=== PATIENT | male | born 1980 | race Two or more races ===

== ENCOUNTER 2019-02-27 12:59 | Emergency (ER) | payer OTHER ==
[~2019-02-27] VITALS: Ht 182.9 cm; Wt 79.5 kg
[2019-02-27] MEDS ORDERED: DEXAMETHASONE 4 MG TABLET PO ONE (13:45)
[2019-02-27] MEDS ORDERED: KETOROLAC TROMETHAMINE 60 MG/2 ML VIAL IM ONE (13:45)
[2019-02-27] MEDS ORDERED: KETOROLAC TROMETHAMINE 0.5% 5 ML OPHTHALMIC SOLUTION OS ONE (14:30)
[2019-02-27 15:19] LABS: BASOPHILS % (AUTO) 0.4 % (0.0-2.0); EOSINOPHILS % (AUTO) 0.7 % (1.0-6.0); HEMATOCRIT 41.4 % (41-53); HEMOGLOBIN 13.8 g/dL (13.5-17.5); LYMPHOCYTES # (AUTO) 1.4 K/uL (1.0-4.8); LYMPHOCYTES % (AUTO) 12.7 % (22.0-44.0); MEAN CORPUSCULAR HEMOGLOBIN 29.5 pg (26.0-34.0); MEAN CORPUSCULAR HGB CONC 33.2 G/dL (31.0-37.0); MEAN CORPUSCULAR VOLUME 89 fL (80-100); MONOCYTES % (AUTO) 9.3 % (2.0-9.0); NEUTROPHILS # (AUTO) 8.5 K/uL (1.8-7.7); NEUTROPHILS % (AUTO) 76.9 % (40.0-70.0); PLATELET COUNT (AUTO) 345 K/uL (150-450); RED BLOOD CELL COUNT(AUTO) 4.67 MIL/uL (4.50-5.90); RED CELL DISTRIBUTION WIDTH 13.1 % (11.5-14.5)
[2019-02-27 15:30] LABS: ANION GAP 7 mmol/L (8-16); CALCIUM, TOTAL 8.7 mg/dL (8.8-10.5); CARBON DIOXIDE 28 mmol/L (22-29); CHLORIDE 103 mmol/L (98-107); CREATININE 1.01 mg/dL (0.60-1.30); GLOMERULAR FILTR. RATE CALC > 60 mL/min (>60); GLUCOSE,RANDOM 112 mg/dL (70-110); POTASSIUM 3.7 mmol/L (3.5-5.1); SODIUM SERUM 138 mmol/L (136-145); UREA NITROGEN, BLOOD 13 mg/dL (7-18)
[2019-02-27 15:36] LABS: ALANINE AMINOTRANSFERASE 30 U/L (12-78); ALBUMIN 2.8 g/dL (3.4-5.0); ALKALINE PHOSPHATASE 147 U/L (46-116); ASPARTATE AMINOTRANSFERASE 22 U/L (15-37); BILIRUBIN,TOTAL 0.4 mg/dL (0.1-1.0); C-REACTIVE PROTEIN QUANT 17.27 mg/dL (0.00-0.30); TOTAL PROTEIN, SERUM 6.8 g/dL (6.4-8.2)
[2019-02-27 16:00] VITALS: BP 120/76
[2019-02-27 16:29] LABS: ERYTHROCYTE SEDIMENTATION RATE 40 MM/HR (0-15)
== END 2019-02-27 16:45 | disposition home or self-care (01) ==
LOC: EMS 13:02
DX: H20.00 Unspecified acute and subacute iridocyclitis (principal); M13.862 Other specified arthritis, left knee; F12.90 Cannabis use, unspecified, uncomplicated
CPT/HCPCS: 36415; 80053; 85025; 85651; 86140; 96372; 99283; J1885; J8540

== ENCOUNTER 2019-03-03 01:55 | Emergency (ER) | payer OTHER ==
[~2019-03-03] VITALS: Ht 180.3 cm; Wt 80.0 kg
[2019-03-03 02:40] VITALS: BP 144/89
[2019-03-03] MEDS ORDERED: DEXAMETHASONE SOD PHOS 4 MG/ML 5 ML VIAL IM ONE (03:00)
[2019-03-03] MEDS ORDERED: OxyCODONE HCL/ACETAMINOPHEN 5-325 MG TABLET PO ONE (03:00)
[2019-03-03] MEDS ORDERED: KETOROLAC TROMETHAMINE 30 MG/ML VIAL IM ONE (03:00)
== END 2019-03-03 03:04 | disposition home or self-care (01) ==
LOC: EMS 01:57
DX: M19.90 Unspecified osteoarthritis, unspecified site (principal); M45.9 Ankylosing spondylitis of unspecified sites in spine; F12.90 Cannabis use, unspecified, uncomplicated; Z91.040 Latex allergy status
CPT/HCPCS: 96372; 99283; J1100; J1885

== ENCOUNTER 2020-06-04 14:39 | Emergency (ER) | payer OTHER ==
[~2020-06-04] VITALS: Ht 182.9 cm; Wt 79.5 kg
[2020-06-04 14:42] VITALS: BP 125/98
[2020-06-04] MEDS ORDERED: PRED5 PO (14:45)
[2020-06-04] MEDS ORDERED: POLYOS OU (14:45)
== END 2020-06-04 17:00 | disposition left against medical advice (07) ==
LOC: EMS 14:39
DX: H57.12 Ocular pain, left eye (principal); Z53.21 Procedure and treatment not carried out due to patient leaving prior to being seen by health care provider